=== PATIENT | male | born 1995 | race Caucasian/White ===

== ENCOUNTER → 2020-11-17 16:25 | Outpatient (CLI) | payer BC, SELFPAY | PROVIDERS: Visit Provider Obstetrics & Gynecology | DX: Z14.8 Genetic carrier of other disease (principal) | CPT/HCPCS: 36415 ==

== ENCOUNTER 2022-03-04 11:14 | Emergency (ER) | payer BC, SELFPAY ==
--- NOTE | 2022-03-04 11:33 | XR_ITS ---
PROCEDURE INFORMATION: Exam: XR Left Knee Exam date and time: 03/04/2022 11:56 AM Age: 26 years old Clinical indication: Pain; Knee; Left; Patient HX: PT thinks he pulled a muscle x days ago playing softball; Additional info: Pain/swelling TECHNIQUE: Imaging protocol: Radiologic exam of the Left knee. Views: 3 views. COMPARISON: No relevant prior studies available. FINDINGS: Bones/joints: Normal. Soft tissues: Mild soft tissue swelling superficial to the medial knee compartment. IMPRESSION: 1. Soft tissue swelling in the expected region of the medial collateral ligament. Clinically correlate. 2. No evidence of acute osseous injury.
--- NOTE | 2022-03-04 11:33 | XR_ITS ---
PROCEDURE INFORMATION: Exam: XR Left Femur Exam date and time: 03/04/2022 11:56 AM Age: 26 years old Clinical indication: Pain; Thigh; Left; Patient HX: PT thinks he pulled a muscle x days ago playing softball; Additional info: Pain/swelling TECHNIQUE: Imaging protocol: Radiologic exam of the Left femur. Views: 2 views. COMPARISON: No relevant prior studies available. FINDINGS: Bones/joints: Unremarkable. No acute fracture. Soft tissues: Unremarkable. IMPRESSION: 1. No evidence of acute osseous injury. 2. Recommendations: If there is concern for tendinous or ligamentous injury, follow-up with magnetic resonance imaging.
[2022-03-04 11:42] VITALS: BP 121/75; PULSE 78; RESP 15; TEMP 36.9; O2SAT 100; BMI 25.7
--- NOTE | 2022-03-04 11:57 | HMH.EDUTC ---
[facility] [place] Disposition Clinical Impression: Muscle strain Disposition: Home, Self-Care Condition on Discharge: Good Instructions: How To Perform RICE (Rest, Ice, Compress, Elevate), How to Use a Knee Immobilizer Additional Instructions: *weight bearing as tolerated *RICE, Rest the extremity, Ice 15-20 minutes 3-4 times daily, Compress- wear the mary ellen wrap as discussed as much as possible to help reduce swelling and pain, Elevate the extremity when at rest *Knee immobilizer is for support and help control swelling, use it except in the shower. Be sure that is not to tight but not to loose either *Elevate when resting *Ibuprofen 600-800mg every 6-8 hours as needed for pain an inflammation. If need something more can take Tylenol in between doses of Ibuprofen to help Immediately follow up with your family doctor for new or worsening of symptoms, or no noticeable improvement over the next 3-5 days Call Orthopedic office for appointment this week with Priti SANTIAGO in Orthopedic office Return if needed Straight to ER if any life threatening symptoms Referrals: Provider,MD Guera [Primary Care Provider] - As needed Priti Leyva PA [Physician Fur Nailer] - Adrien Willoughby JR, MD [Physician] - Forms: Work/School Release Time of Disposition: 12:45 Medical Decision Making - Len Inquiry Pt receiving controlled substance: No Len was queried for this patient: No Vital Signs: 03/04/22 11:42 03/04/22 12:55 Temperature 98.5 F 98.5 F Temperature Source Oral Pulse Rate 78 Pulse Rate [Left] 78 Respiratory Rate 15 15 Blood Pressure 121/75 Blood Pressure [Right Arm] 121/75 Blood Pressure Mean [Right Arm] 90 02 Sat by Pulse Oximetry 100 - Radiology Data #1 Image(s): Femur Image Reviewed: Yes I have reviewed radiologist's interpretation IMPRESSION: 1. No evidence of acute osseous injury. 2. Recommendations: If there is concern for tendinous or ligamentous injury, follow-up with magnetic resonance imaging. #2 Image(s): Knee Image Reviewed: Yes I have reviewed radiologist's interpretation IMPRESSION: 1. Soft tissue swelling in the expected region of the medial collateral ligament. Clinically correlate. 2. No evidence of acute osseous injury. - Physician Consults Physician Consulted: Dr Willoughby Time: 12:45 Reason -: Orthopedic Eval/Care Comment/Response: Spoke with Dr Willoughby and informed him of xray findings and he advised to have him call office for appointment this week with Priti SANTIAGO in the Orthopedic office [facility] HPI - General Stated complaint: left leg pain, no accident Time Seen by Provider: 03/04/22 11:58 Mode of Arrival: Ambulatory Source of Information: Patient Limitations: No Limitations Description of Symptoms (Recalled from Triage Doc. by RN): patient comes in with complaints of pain and swelling in left knee. pain and swelling began after playing a baseball game. HEENT Symptoms (Recalled from RN notes): No Resp Symptoms (Recalled from RN notes): No Skin Symptoms (Recalled from RN notes): No MS Symptoms (Recalled from RN notes): Yes Functional Status (Recalled from RN notes): n/a - History of Present Illness Provider Complaint: Patient states that he was running bases on in baseball game when he felt like something pulled in his left upper leg States that since then he has been having some pain and swelling in his knee and leg and pain is worse with movement and walking Statse that feels muscular in nature States that he has hx of varicose veins but not noticed and worsening of the veins - Related Data Allergies Allergy/AdvReac Type Severity Reaction Status Date / Time No Known Allergies Allergy Verified 03/04/22 11:44 - Worker's Comp Is this a Worker's Comp case?: No [facility] History - Hepatitis A Screen Attestation statement:: This patient has been screened for Hepatitis A risk factors. I have reviewed the patient's past medi
[2022-03-04 12:55] VITALS: BP 121/75; PULSE 78; RESP 15; TEMP 36.9
== END 2022-03-04 12:56 | disposition home or self-care (01) ==
PROVIDERS: Emergency Provider Nurse Practitioner
DX: S76.912A Strain of unspecified muscles, fascia and tendons at thigh level, left thigh, initial encounter (principal); Y93.64 Activity, baseball
CPT/HCPCS: 73552; 73562; 99212; G0463

== ENCOUNTER → 2022-03-21 12:55 | Outpatient (CLI) | payer BC, SELFPAY ==
--- NOTE | 2022-03-21 13:21 | MR_ITS ---
FINAL REPORT CLINICAL HISTORY: thigh SOFTBALL INJURY X 3 WEEKS AGO KNOT ON ANTERIOR PROXMIAL FEMUR MARKER PLACED OVER KNOT THAT PATIENT COULD FEEL FINDINGS: Multiplanar MR imaging of the left femur/thigh was performed without contrast. There is no evidence of fracture or bone marrow edema. There is a small cyst in the femoral neck. There is a moderate tear of the midportion of the rectus femoris with a fluid collection in this region measuring 5.9 cm in length. Note is made of a medial subcutaneous venous varicosity. IMPRESSION: Moderate tear of the mid rectus femoris with adjacent fluid collection that may represent a chronic hematoma or seroma. Reviewed, Interpreted and Dictated by Benton Hernadez III, MD Transcribed by Christiano Chiu Authenticated and [facility]
== END ==
PROVIDERS: Visit Provider Orthopaedic Surgery
DX: T14.8XXA Other injury of unspecified body region, initial encounter (principal); M25.562 Pain in left knee
CPT/HCPCS: 73718